=== PATIENT | female | born 1965 | race Two or more races ===

== ENCOUNTER 2020-04-02 07:19 | Outpatient (CLI) | payer OTHER | END 2020-04-02 23:59 | disposition home or self-care (01) | LOC: LAB 07:19 | PROVIDERS: ATTEND Specialist | DX: Z01.812 Encounter for preprocedural laboratory examination (principal); Z20.822 Contact with and (suspected) exposure to COVID-19 | CPT/HCPCS: 87426; C9803 ×2; U0003 ==

== ENCOUNTER 2020-04-07 07:15 | Day surgery (SDC) | payer OTHER ==
[2020-04-07] MEDS ORDERED: MIDAZOLAM HCL 2 MG/2ML VIAL ONE (08:18)
[2020-04-07] MEDS ORDERED: FENTANYL PF 100MCG/2ML AMPUL ONE ×2 (08:18→09:57)
[2020-04-07] MEDS ORDERED: GLYCOPYRROLATE 0.2 MG/ML VIAL ONE (08:20)
[2020-04-07] MEDS ORDERED: ROCURONIUM BROMIDE 50 MG/5 ML ONE (08:20)
[2020-04-07] MEDS ORDERED: SUCCINYLCHOLINE CHLORIDE 20 MG/ML VIAL ONE (08:20)
[2020-04-07] MEDS ORDERED: BUPIVACAINE 0.25% 75 MG/30 ML VIAL ONE (09:08)
[2020-04-07] MEDS ORDERED: methylPREDNISolone ACETATE 80 MG/ML VIAL ONE (09:09)
[2020-04-07] MEDS ORDERED: HYDROCODONE/APAP 5/325MG TABLET PO PRN ×2 (11:00)
[2020-04-07] MEDS ORDERED: ANESTHESIA TRAY IN PYXIS 1 EA TRAY MC ONE (12:25)
== END 2020-04-07 11:20 | disposition home or self-care (01) ==
LOC: DS 07:15
PROVIDERS: ATTEND Specialist
DX: S83.241A Other tear of medial meniscus, current injury, right knee, initial encounter (principal); M94.261 Chondromalacia, right knee; X58.XXXA Exposure to other specified factors, initial encounter; Y93.89 Activity, other specified; Y92.89 Other specified places as the place of occurrence of the external cause; Y99.8 Other external cause status
CPT/HCPCS: 29881; 84703; A4217; A6253; J0330; J1040; J2250; J3010; J3490 ×2; 88304-TC; 88311-TC; J1885; J2704